=== PATIENT | male | born 2000 ===

== ENCOUNTER 2024-10-22 06:30 | Day surgery (SDC) | payer OTHER ==
[2024-10-15 12:44] LABS: BASO % 0.3 % (0.1-1.2); EOS # 0.06 (0.04-0.54); EOS % 0.7 % (0.7-7.0); LYMPH # 2.15 (1.18-3.74); LYMPH % 24.4 % (19.3-53.1); MEAN PLATELET VOLUME 10.80 fl (9.4-12.4); MONO # 0.43 (0.24-0.82); MONO % 4.9 % (4.7-12.5); NEUT # 6.11 (1.56-6.13); NEUT % 69.5 % (34.0-71.1); RED CELL DISTRIBUTION WIDTH 13.0 % (11.6-14.4)
[2024-10-15 12:59] LABS: URINE APPEARANCE Clear; URINE BILIRRUBIN Negative (NEGATIVE); URINE BLOOD Negative; URINE COLOR Dark Yellow; URINE GLUCOSE Negative (NEGATIVE); URINE KETONE Trace (NEGATIVE); URINE LEUKOCYTE Negative; URINE NITRATE Negative; URINE PROTEIN Trace (NEGATIVE); URINE UROBILINOGEN 1.0 E.U./dl
[2024-10-15 13:02] LABS: URINE BACTERIA 16.7 uL (0.0-1933); URINE WBC 4.6 uL (0.0-23.2)
[2024-10-15 13:03] LABS: URINE CAST 0.14 uL (0.0-1.40); URINE EPITHELIAL CELLS 1.0 uL (0.0-38.8); URINE RBC 0.8 uL (0.0-20.8)
[2024-10-15 13:07] LABS: INR 1.1
[2024-10-15 13:30] VITALS: BP 125/86
[2024-10-15 13:54] LABS: ALT/SGPT 37.0 U/L (12-78); AST/SGOT 19.0 U/L (15-37); BILIRUBIN TOTAL 0.95 mg/dL (0.3-1.2); BUN CREA RATIO 5.0 (7.0-25.0); CREATININE SERUM 1.18 mg/dL (0.70-1.30); GFR 75.21; GLOBULINA 3.4 G/DL (2.4-3.5); GLUCOSE FASTING 82.0 mg/dL (65-100); OSMOLALITY SERUM 284.0 MOSM/KG (275-295)
[~2024-10-22] VITALS: Ht 182.9 cm; Wt 99.8 kg
[~2024-10-22 06:30] MED LIST: BUPROPION XL450 MG; TRAZODONE HCL150 MG
[2024-10-22] MEDS ORDERED: CEFAZOLIN SODIUM 1,000 MG VIAL ONE (08:04)
== END 2024-10-22 15:15 | disposition home or self-care (01) ==
LOC: CIR.AMB 06:30
PROVIDERS: ATTEND Colon & Rectal Surgery
DX: L05.01 Pilonidal cyst with abscess (principal)